=== PATIENT | male | born 1940 | race Caucasian/White ===

== ENCOUNTER 2019-12-23 07:39 | Inpatient (IN) | payer OTHER ==
[2019-12-23] VITALS (21 sets, daily range): BP systolic 103–148; BP diastolic 46–71
[~2019-12-23] VITALS: Ht 162.6 cm; Wt 68.4 kg
[2019-12-23 08:07] LABS: BASOPHILS 0.5 % (0.0-2.0); HEMATOCRIT 24.9 % (42.0-52.0); LYMPHOCYTES 18.8 % (24.0-44.0); MCHC 32.1 g/dL (28.0-37.0); MCV 96.6 fL (80.0-100.0); PLATELET COUNT 202 thou/uL (150-400); POLYS 69.7 % (36.0-66.0); RBC 2.58 mil/uL (4.50-6.00); RDW 16.9 % (10.5-14.5); WBC 4.3 thou/uL (4.0-11.0)
--- NOTE | 2019-12-23 08:13 | EKG ---
[facility] [place] [address] ELECTROCARDIOGRAM REPORT Name: ANH HANNON Room #: PRE M.R.#: [id number] Admission: Attend Phys: Discharge: Date of : 40 Report #: [id number] THIS REPORT FOR: cc: Bryson Morales MD [facility] ~ THIS REPORT FOR: //name// [facility] ED Test Date: 2019-12-23 Test Time: 07:46:48 Pat Name: ANH HANNON Department: Room: Gender: Access Clerk: [facility] : 1940 Requested By: Ralph Perez Order Number: [id number] MD: Bryson Morales Measurements Intervals [place] Rate: 74 P: 71 MT: 125 QRS: 26 QRSD: 98 T: 63 QT: 393 QTc: 436 Interpretive Statements Sinus rhythm Minimal ST elevation, diffuse leads No previous ECG available for comparison Electronically Signed On 12-23-2019 8:12:09 CDT by Bryson Morales [email or web address] <ELECTRONICALLY SIGNED> By: Bryson Morales MD, [facility] 12/23/19 0812 0746 0746 Bryson Morales MD, FACC /EPI
[2019-12-23 08:16] LABS: CALCIUM 7.8 mg/dL (8.5-10.1)
[2019-12-23 08:26] LABS: ALBUMIN 2.3 g/dL (3.4-5.0); TOTAL BILIRUBIN 0.3 mg/dL (<0.1-1.0); TOTAL PROTEIN 5.4 g/dL (6.4-8.2); TROPONIN-I 0.1 ng/mL (<0.06)
[2019-12-23 08:34] LABS: CHOLESTEROL 75 mg/dL (<200); HDL CHOLESTEROL 31 mg/dL (>40); LDL CHOLESTEROL 39 mg/dL (<100); TC:HDL 2.4 Ratio (Not establshd); TRIGLYCERIDE 29 mg/dL (<150); VLDL 6 mg/dL (<40)
--- NOTE | 2019-12-23 11:18 | NUR ---
sheath to r groin pulled by Giovani Butterfield with mynx closure device deployed. Hemostasis 1045. Report called to Salomón SPARKS in CCU. Pt to be transported to room 204.
--- NOTE | 2019-12-23 12:43 | NUR ---
TO UNIT BY CART AT 1150, REPORT FROM CLARE CHOU. SR PER TELE. RIGHT GROIN SITE CDI, SOFT, NONPAINFUL. ORIENTED TO UNIT. BEDREST UNTIL 1400. FALL PRECAUTIONS IN PLACE, CLOSE TO NURSES' STATION. WILL CONTINUE TO FOLLOW CLOSELY.
[2019-12-24] VITALS (8 sets, daily range): BP systolic 108–131; BP diastolic 47–68
[2019-12-24 05:42] LABS: WBC 6.2 thou/uL (4.0-11.0)
[2019-12-24 05:44] LABS: MCH 31.9 pg (26.0-34.0); MCHC 33.2 g/dL (28.0-37.0); MCV 96.1 fL (80.0-100.0); RBC 1.91 mil/uL (4.50-6.00)
[2019-12-24 05:59] LABS: HEMATOCRIT 18.4 % (42.0-52.0); HEMOGLOBIN 6.1 gm/dL (14.0-18.0)
[2019-12-24 06:08] LABS: ALBUMIN 1.9 g/dL (3.4-5.0); CALCIUM 7.7 mg/dL (8.5-10.1); POTASSIUM 4.4 mmol/L (3.5-5.1); TOTAL BILIRUBIN 0.5 mg/dL (<0.1-1.0); TOTAL PROTEIN 4.4 g/dL (6.4-8.2)
[2019-12-24 06:17] LABS: TROPONIN-I 7.22 ng/mL (<0.06)
--- NOTE | 2019-12-24 06:45 | NUR ---
SLEPT MOST OF SHIFT. DENIES COMPLAINTS THIS AM. WORKING ON GOALS AND PLAN OF CARE FOR NOC. PATIENT WANTING TO GO HOME BUT WILL RECIEVE BLOOD TODAY. CONTINUE TO ASSESS CLOSELY. ASSIST UP TO BATHROOM NEEDED.
[2019-12-24 09:18] LABS: % SATURATION 15 % (20-39); IRON 33 ug/dL (65-175); TIBC 219 ug/dL (250-450)
--- NOTE | 2019-12-24 10:11 | NUR ---
YIN WAS NOTIFIED THIS AM VIA VOICEMAIL FROM LISSETTE AT THE [facility] THAT PATIENT HAS [facility] SERVICES BUT THEY ARE NOT AUTHORIZING HIS STAY HERE DUE TO [facility] BEING OUT OF NETWORK WITH THEIR COMMUNITY CARE NETWORK. THEY REQUEST THAT WE TRANSFER PT TO THE [facility] [place] WHERE HE NORMALLY FOLLOWS UP. YIN ATTEMPTED TO INIATE THIS BUT [facility]TE STATING THAT WE MUST CALL [facility] TO INIATE THE PROCESS AND THEY WILL LET US KNOW IF A BED IS AVAILABLE OR IF WE NEED TO TRANSFER. YIN REACHED OUT TO THE [facility] AT [phone] AND LEFT FOR THE TRANSFER RN AT 0839 AND 0939. CM RECEIVED A CALL BACK FROM SONIA TRANSFER RN AT THE [facility] AT 0948. YIN DISCUSSED THAT PT HAD EMERGENT SITUATION AND IS CURRENTLY GETTING BLOOD TRANSFUSION TODAY. SONIA AT THE [facility] STATES THEY DO NOT HAVE A [employer] THREAD WINDER THERE AND SO SHE STATES THAT THEY CANNOT ACCEPT THE PATIENT FOR TRANSFER AND PT MAY REMAIN HERE AT [facility] AND SHE WILL DOCUMENT IT. PT CAN EITHER ATTEMPT TO BILL THE VA AND UNDER THE [place] HAVE CASE RETROREVIEWED FOR POSSIBLE PAYMENT OR BILL MEDICARE. YIN SPOKE WITH PATIENT TO EXPLAIN THE SITUATION AND HE WANTED CM TO SPEAK WITH HIS DAUGHTER ASHLEY ([phone]). ASHLEY STATES THAT SHE IS FRUSTRATED WITH THE VA AND WANTS PATIENT TO REMAIN AT [facility] AND WE BILL MEDICARE. YIN NOTIFIED BUSINESS OFFICE OF THIS REQUEST AND LEFT AT [phone]. YIN ALSO NOTIFIED PTS . DAUGHTER REPORTS SHE IS WORKING ON GETTING PATIENT ESTABILISHED AT WHERE SHE WORKS INSTEAD OF THE VA SHE IS NOT HAPPY WITH THEIR CARE. YIN NOTIFIED BEDSIDE RN THAT PT WILL REMAIN AT [facility].
--- NOTE | 2019-12-24 12:54 | 2DMMODE ---
[facility] [place] [address] 2 D/M-MODE ECHOCARDIOGRAM Name: ANH HANNON Room #: 204-P ADM IN M.R.#: [id number] Admission: 12/23/19 Attend Phys: Ryan Patel MD, Discharge: Date of : 40 Report #: [id number] THIS REPORT FOR: cc: FAM - Family physician unknown FAM - Family physician unknown Bryson Morales MD [facility] ~ APPROVED REPORT Study performed: 12/24/2019 10:19:59 EXAM: Comprehensive 2D, Doppler, and color-flow Echocardiogram Patient Location: Bedside Room #: 204 Status: routine BSA: 1.74 HR: 95 bpm BP: 125/52 mmHg Rhythm: Atrial Fibrillation Other Information Study Quality: Adequate Indications Mitral Valve Prolapse Atrial Fibrillation CAD Chest Pain Hypertension/HDD STEMI 2D Dimensions RVDd: 36.21 mm IVSd: 7.73 (7-11mm) LVOT Diam: 22.60 (18-24mm) LVDd: 56.17 mm PWd: 7.08 (7-11mm) Ascending Ao: 29.88 (22-36mm) LVDs: 45.12 (25-40mm) Aortic Root: 32.70 mm Volumes Left Atrial Volume (Systole) Single Plane 4CH: 86.03 mL Single Plane 2CH: 56.64 mL LA ESV Index: 43.00 mL/m2 Aortic Valve [facility] [address] [place] [address] 2 D/M-MODE ECHOCARDIOGRAM Name: ANH HANNON Room #: 204-P ADM IN M.R.#: [id number] Admission: 12/23/19 Attend Phys: Ryan Patel, Discharge: Date of : 40 Report #: [id number] AoV Peak Asher.: 1.85 m/s AO Peak Gr.: 13.63 mmHg LVOT Max P.49 mmHg LVOT Max V: 1.06 m/s DAVID Vmax: 2.30 cm2 Pulmonary Valve PV Peak Asher.: 1.29 m/s PV Peak Gr.: 6.69 mmHg Left Ventricle Left ventricle is borderline dilated. Regional wall motion is not well visualized but grossly normal. There is normal left ventricular wall thickness. The left ventricular systolic function is normal. The left ventricular ejection fraction is within the normal range. LVEF is 55%. This study is not technically sufficient to allow evaluation of the LV diastolic function due to atrial fibrillation. Right Ventricle The right ventricle is normal size. The right ventricular systolic function is normal. Atria Left atrium is dilated. Right atrium is at the upper limits of normal. Aortic Valve The aortic valve is mildly calcified. No aortic regurgitation is present. There is no aortic valvular stenosis. Mitral Valve The mitral valve is normal in structure. Mild mitral regurgitation. No evidence of mitral valve stenosis. Tricuspid Valve The tricuspid valve is normal in structure. There is no tricuspid valve regurgitation noted. Pulmonic Valve There is no pulmonic valvular regurgitation. Great Vessels The aortic root is normal in size. IVC is not well visualized. Pericardium There is no pericardial effusion. [facility] [address] [place] [address] 2 D/M-MODE ECHOCARDIOGRAM Name: ANH HANNON Room #: 204-P ADM IN M.R.#: [id number] Admission: 12/23/19 Attend Phys: Ryan Patel, Discharge: Date of : 40 Report #: [id number] <Conclusion> The left ventricular systolic function is normal. Regional wall motion is normal. LVEF is 55-60%. Left atrium is dilated. The aortic valve is mildly calcified. No aortic regurgitation or stenosis The mitral valve is normal in structure. Mild mitral regurgitation. Pulmonary artery systolic pressure could not be reliably ascertained There is no pericardial effusion. <ELECTRONICALLY SIGNED> By: Bryson Morales MD, FACC 12/24/19 1252 1252 125 Bryson Morales MD, FACC /INF
--- NOTE | 2019-12-24 14:41 | NUR ---
Case discussed with the care team and chart reviewed. The pt [facility] goes to the [facility] for f/u care with Dr. Sameer Caceres. He was admitted via the ER with a stemi and went to the [facility]. GI was also consulted due to hgb of 6.1 and he is getting a unit of blood today. The pt's and dtr indicated to staff that he is suspected of having stomach cancer d/t recent EGD/COLON and has an upcoming appt at the [place] regarding his biopsy results. He lives with his in [place], [place] and has a complex cardiac history as well. The pt is anxious to go home. DC plan at this time is outpt followup as previously noted. He was indep prior to admission and has good support. His dtr is a RN at [facility]. Will follow along for any dc planning needs that may arise.
--- NOTE | 2019-12-24 20:55 | NUR ---
ASSUMED CARE OF PATIENT AT 0700. ASSESSMENT COMPLETED. PATIENT GIVEN TRANSFUSION RBC X 2 UNITS. HEMOGLOBIN RECHECKED AFTER EACH UNIT. NO DIFFICULTY DURING OR AFTER TRANSFUSIONS. RECORDS REQUESTED FROM [facility]. RIGHT GROIN SITE WHICH IS POSITIVE FOR HEMATOMA WITHOUT CHANGE THROUGHOUT DAY, NEGATIVE FOR EDEMA OR DRAINAGE. STOOL SAMPLE COLLECTED. DENIES ANY NAUSEA, VOMITING OR PAIN. PATIENT TO CONTINUE POC.
[2019-12-25 04:48] VITALS: BP 119/59
[2019-12-25 05:47] LABS: CALCIUM 7.4 mg/dL (8.5-10.1); CREATININE 1.1 mg/dL (0.7-1.3); POTASSIUM 4.1 mmol/L (3.5-5.1)
[2019-12-25 07:40] VITALS: BP 111/58
--- NOTE | 2019-12-25 07:41 | EKG ---
[facility] [place] [address] ELECTROCARDIOGRAM REPORT Name: ANH HANNON Room #: 204-P ADM IN M.R.#: [id number] Admission: 12/23/19 Attend Phys: Ryan Patel MD, Discharge: Date of : 40 Report #: [id number] THIS REPORT FOR: cc: MARY - Family physician unknown FAM - Family physician unknown Bryson Morales MD [facility] ~ THIS REPORT FOR: //name// [facility] Test Date: 2019-12-24 Test Time: 08:24:48 Pat Name: ANH HANNON Department: Room: 204 Gender: M Atmospheric Physicist: Harinder WARREN : 1940 Requested By: Ryan Patel Order Number: [id number] MD: Bryson Morales Measurements Intervals [place] Rate: 100 P: 52 VT: 137 QRS: 21 QRSD: 94 T: 75 QT: 330 QTc: 426 Interpretive Statements Sinus tachycardia Inferior infarct, old Nonspecific ST and T wave abnormality Compared to ECG 12/23/2019 07:46:48 Minimal, diffuse ST segment elevation is no longer present Electronically Signed On 12-25-2019 7:39:24 CDT by Bryson Morales [email or web address] <ELECTRONICALLY SIGNED> By: Bryson Morales MD, [facility] 12/25/1939 3 3 Bryson Morales MD, [facility] /EPI
--- NOTE | 2019-12-25 07:53 | NUR ---
PT RESTING ON AND OFF THRU THE NOC, STATED HIS SLEEPING PILL WAS NOT STRONG ENOUGH, UP TO BR WITH SBA SEVERAL TIMES THRU SHIFT, VSS,STILL WAITING FOR VA RECORDS, R GROIN WITH BRUISING DRESSING CDI, WILL CON'T TO MONITOR PER PPOC.
[2019-12-25 08:19] LABS: HEMATOCRIT 20.7 % (42.0-52.0); HEMOGLOBIN 7.1 gm/dL (14.0-18.0); MCHC 34.2 g/dL (28.0-37.0); RBC 2.28 mil/uL (4.50-6.00); RDW 18.7 % (10.5-14.5); WBC 5.4 thou/uL (4.0-11.0)
[2019-12-25 08:22] LABS: MCV 90.7 fL (80.0-100.0)
--- NOTE | 2019-12-25 08:47 | EKG ---
[facility] [place] [address] [place] [address] ELECTROCARDIOGRAM REPORT Name: ANH HANNON Room #: 204-P ADM IN M.R.#: [id number] Admission: 12/23/19 Attend Phys: Ryan Patel MD, Discharge: Date of : 40 Report #: [id number] THIS REPORT FOR: cc: FAM - Family physician unknown FAM - Family physician unknown Bryson Morales MD [facility] THIS REPORT FOR: //name// [facility] Test Date: 2019-12-25 Test Time: 07:18:12 Pat Name: ANH HANNON Department: Room: 204 Gender: M Set Rider: HUSSAIN : 1940 Requested By: Ivania Macedo Order Number: [id number] MD: Bryson Morales Measurements Intervals [place] Rate: 73 P: 61 RI: 132 QRS: 8 QRSD: 97 T: 25 QT: 387 QTc: 427 Interpretive Statements Sinus rhythm Premature ventricular complexes Inferior infarct, old Compared to ECG 12/23/2019 07:46:48 Premature ventricular complexes are now present Electronically Signed On 12-25-2019 8:46:08 CDT by Bryson Morales [email or web address] <ELECTRONICALLY SIGNED> By: Bryson Morales MD, FACC 12/25/19 0846 7 7 Bryson Morales MD, [facility] /EPI
[2019-12-25] MEDS ORDERED: PANTOPRAZOLE SO40 M1 PO (08:48)
[2019-12-25] MEDS ORDERED: METOPROLOL SUCC25 M1 PO (08:48)
[2019-12-25] MEDS ORDERED: LIPITOR40 MG PO (08:48)
[2019-12-25] MEDS ORDERED: CLOPIDOGREL75 MG PO (08:48)
[2019-12-25 09:38] VITALS: BP 111/58
--- NOTE | 2019-12-25 10:58 | NUR ---
ASSUMED CARE 0700, ALERT X4 WITH FORGETFULNESS. RIGHT GROIN SIGHT S/D/I WITH BRUISING. REVIEWED POST CARDIAC PROCEDURE CARE. DC HOME WITH SELF CARE. IV AND TELE REMOVED.
--- NOTE | 2019-12-25 12:00 | CATHLAB ---
[facility] [place] [address] INVASIVE PROCEDURE REPORT Name: ANH HANNON Room #: 204-P [facility] IN M.R.#: [id number] Admission: 12/23/19 Attend Phys: Ryan Patel MD, Discharge: 12/25/19 Date of : 40 Report #: [id number] THIS REPORT FOR: cc: FAM - Family physician unknown FAM - Family physician unknown Ryan Patel MD [facility] ~ APPROVED REPORT Study performed: 12/23/2019 07:57:21 Patient Details Patient Status: Out-Patient Room #: The patient is a 79 year-old male Event Personnel Ryan Patel Senior Director Finance, Saul Alexander RTR Monitor, Vanesa Mao RN RN, Amelia Butterfield RTR, PHYS THERAPIST Scrub Procedures Performed Art Access - R femoral artery* Left Heart Cath Coronaries, Bypass Grafts 5123029 LHCCORCABG EMILY Revasc AMI Total/Sub Single PDA C9606 AMIREVSING Aortogram Abdominal Peripheral Angio 633816 37344 Initial Mod Sed Same Phys/QHP Gr5y 285738 67815 Mod Sed Same Phys/QHP Ea 042664 Hemostasis w/ Mynx Indication Chest pain Procedure Narrative The Right Groin^ was infiltrated with 1% Lidocaine subcutaneous anesthesia. A PINNACLE 6FR Sheath #[id number] sheath was inserted into the RFA^. Coronary angiography was performed using coronary diagnostic catheters. The right coronary system was accessed and visualized with a JR4 catheter. The left coronary system was accessed and visualized with a JL4 catheter. The left ventricle was accessed and visualized with a PIGTAIL catheter. Left ventriculogram was performed in 30 degree projection. An aortogram of the abdominal aorta was performed. Closure device was deployed with a 6 Fr MYNXGRIP 6/7F #[id number]. The patient tolerated the procedure well and there were no complications associated with the procedure. There was no hematoma. MYNX WILL BE DEPLOYED IN HOLDING FOLLOWING ACT RESULTS [facility] [address] [address] INVASIVE PROCEDURE REPORT Name: ANH HANNON Room #: 204-P [facility] IN M.R.#: [id number] Admission: 12/23/19 Attend Phys: Ryan Patel, Discharge: 12/25/19 Date of : 40 Report #: [id number] Intraoperative Conscious Sedation Sedation start time: 820 Case end Time: 900 Fentanyl 50 mcg Versed 1 mg Fluoro Time: 7.41 minutes Dose: DAP 7591.20 cGycm2 976 mGy Contrast Type and Amount: Visipaque 200 ml Hemodynamics The aortic pressure is 152/54 mmHg with a mean of 100 mmHg. The left ventricular pressure is 156/0 mmHg with a mean of mmHg. The left ventricular end diastolic pressure is 23 mmHg. PCI Technique Lesion Percutaneous coronary intervention was performed on the right posterior descending artery. A LAUNCHER 6FR RCB #[id number] Guide Catheter was used to engage the ostium. A Luge Wire .014 x 182CM #[id number] Interventional Guidewire was used to cross the lesion. STENT DEPLOYMENT A drug-eluting stent RESOLUTE VERONICA OTW 3.5 X 12 #[id number] was inserted and inflated up to 18.00atm for 35seconds. POST STENT DEPLOYMENT BALLOON DILATION A Balloon catheter TREK NC OTW 3.75 X 12 #[id number] was inserted and inflated up to 22.00atm for 27seconds. Conclusion 1. Successful PTCA stent of a 98% mid SVG to PDA graft stenosis. Placement of a three 5 x 12 Marina resolute drug-eluting stent postdilated to 3.9 mm ANDRES grade III flow 50% proximal graft lesion also noted not intervened on. #2 the [place] right coronary is occluded #3 the [place] left system is occluded at the left main #4 the CALI to LAD is intact and filling a diffusely diseased LAD. No occlusive disease #5 large ectatic graft that goes to the OM system. The ostium of this graft is 50% and feeling diffusely diseased nondominant but moderate in distribution circumflex OM system no occlusive disease. This also may be a sequential to a small diagonal branch which is briskly filled via this graft. #6 normal left ventricular size in the inferior base mid inferior wall is severely hypokinetic EF 50% range. Mild MR #7 abdominal aortogram is an ectatic abdominal aorta non-aneurysmal appearing. Mildly diseased renal arteries and iliac system [facility] [address] [place] [address] INVASIVE PROCEDURE REPORT Name: ANH HANNON Room #: 204-P [facility] IN M.R.#: [id number] Admission: 12/23/19 Attend Phys: Ryan Patel, Discharge: 12/25/19 Date of : 40 Report #: [id number] Recommendations and plan: Continue aggressive risk factor modification. Will initiate dual antiplatelet therapy at least transiently. Patient with a apparent gastric mass and anemia. Will attempt single platelet therapy if necessary with Plavix. Transfer to CCU in stable but guarded condition. Resolution of EKG changes. <ELECTRONICALLY SIGNED> By: Ryan Patel MD, FACC 12/25/19 1158 1158 1158 Ryan Patel MD, FACC /INF
--- NOTE | 2019-12-25 15:29 | D ---
[facility] [place] [address] DISCHARGE SUMMARY Name: ANH HANNON Room #: 204-P [facility] IN M.R.#: [id number] Admission: 12/23/19 Attend Phys: Ryan Patel MD, Discharge: 12/25/19 Date of : 40 Report #: [id number] THIS REPORT FOR: cc: MARY - Family physician unknown FAM - Family physician unknown Ryan Patel MD [facility] ~ THIS REPORT FOR: //name// CC: MARY [facility] Ryan Patel [facility] COU[facility]SE: The patient is a 79-year-old male who presented with recurrent chest pain, angina, STEMI with ST elevation in the inferolateral leads. He was emergently taken to the catheterization lab. Apparently, there is a history of a recently diagnosed gastric cancer and chronic anemia from the [facility]. His daughter works at and apparently there may be some followup regarding this and what the plan of attack for the gastric cancer or at least abdominal or stomach mass is my understanding. In any event, the catheterization lab revealed a subtotal graft to the PDA in the body of the graft. I was able to dilate and stent this with a 3.5 x 12 Jeremy Resolute drug-eluting stent. This was postdilated up to close to 4.0 mm. ANDRES grade 3 flow. The only remaining circulation he had was the SVG to the OM with moderate disease in the CALI to the LAD and the LAD was moderately diseased. He apparently had 2 bypass surgeries and I do not have those records, but these were the only remaining circulation and were not jeopardized. His LV function is within the 40-45% range. He has had this anemia and has been transfused 2 units. He did go down hemoglobin of 6.3 after the procedure. He is 7.3 this morning on 2 units of blood. He feels better. No angina. He will be discharged home on clopidogrel without aspirin. I think we need to be judicious and careful how we could proceed and try to keep the stent open, Protonix 40, atorvastatin 40, Toprol 25. No lifting for 48 hours. No lying in tub, Jacuzzi or pruitt for a week. No MRI or dental work for 3 months. The patient is given IV iron. DISCHARGE DIAGNOSES: 1. Acute myocardial infarction with subtotal vein graft to the PDA successfully dilated and stented. 2. Mild ischemic cardiomyopathy. 3. Gastric mass of unclear etiology, currently being worked up. 4. Anemia. 5. Hypertension. 6. Hypercholesterolemia. <ELECTRONICALLY SIGNED> By: Ryan Patel MD, [facility] 12/25/19 1529 0849 0857 Ryan Patel MD, FACC /nt
== END 2019-12-25 11:23 | disposition home or self-care (01) | DRG 246 ==
LOC: ER 07:39 → 2N 08:14 → TBACV 08:14 → 2N 09:15
PROVIDERS: Emergency Medicine; Nurse Practitioner Adult Health; ADMIT Internal Medicine Cardiovascular Disease
DX: I21.3 ST elevation (STEMI) myocardial infarction of unspecified site (principal); E43 Unspecified severe protein-calorie malnutrition; C18.9 Malignant neoplasm of colon, unspecified; C15.9 Malignant neoplasm of esophagus, unspecified; D68.69 Other thrombophilia; I25.709 Atherosclerosis of coronary artery bypass graft(s), unspecified, with unspecified angina pectoris; I10 Essential (primary) hypertension; E78.5 Hyperlipidemia, unspecified; I34.1 Nonrheumatic mitral (valve) prolapse; D64.9 Anemia, unspecified; I25.5 Ischemic cardiomyopathy; E78.00 Pure hypercholesterolemia, unspecified; Z95.1 Presence of aortocoronary bypass graft; I25.2 Old myocardial infarction; Z79.899 Other long term (current) drug therapy; Z68.25 Body mass index [BMI] 25.0-25.9, adult
CPT/HCPCS: 10081

== ENCOUNTER → 2020-01-08 | Outpatient (CLI) | payer OTHER ==
[~2020-01-08] MED LIST: CLOPIDOGREL75 MG PO; LIPITOR40 MG PO; METOPROLOL SUCC25 M1 PO; PANTOPRAZOLE SO40 M1 PO
== END ==
LOC: SJCVC 11:47
DX: R94.31 Abnormal electrocardiogram [ECG] [EKG] (principal); I25.810 Atherosclerosis of coronary artery bypass graft(s) without angina pectoris; I25.5 Ischemic cardiomyopathy; I10 Essential (primary) hypertension; E78.00 Pure hypercholesterolemia, unspecified; K31.89 Other diseases of stomach and duodenum; C15.9 Malignant neoplasm of esophagus, unspecified; D64.9 Anemia, unspecified